=== PATIENT | female | born 1930 | race African-American/Black ===

== ENCOUNTER 2017-07-27 00:59 | Emergency (ER) | payer MEDICARE, OTHER ==
[~2017-07-27] VITALS: Ht 162.6 cm; Wt 65.0 kg
[~2017-07-27 00:59] MED LIST: 1-ME1LIQ PO; ATEN-102 PO; ATOR40TA PO; DETR2TAB PO; FERR300S PO; HUMU70IN SQ; LISI5 PO; MECL25 PO; METF500 PO; PLAV75TA PO; [UNRECOGNIZED DRUG - CODE] PO
[2017-07-27 01:05] VITALS: BP 223/96; PULSE 117; RESP 18; TEMP 99; O2SAT 98
--- NOTE | 2017-07-27 01:15 | PD ---
HPI Chief Complaint: Altered Mental Status Time Seen by Provider: 01:10 Travel History International Travel<30 days: No Contact w/Intl Traveler<30days: No Traveled to known affect area: No History of Present Illness HPI The patient is an 87 year old female who presents to the [facility] emergency department with a history of altered mentation that began earlier today. The patient is reportedly bedbound related to a prior cerebrovascular accident causing left-sided weakness. The patient lives at home with her son. Another son is available at the bedside to assist with history. The patient reportedly was experiencing visual hallucinations. She reports that she saw bright lights. The patient reports having urinary frequency throughout the day today. The patient does have a prior history of urinary tract infections causing confusion. She has not had any new weakness. She denies having any headache or neck pain. The patient reports having joint pains. She reports that she has rheumatoid arthritis. The patient was brought in by ambulance services and had a normal blood sugar prior to arrival. The patient was noted to be tachycardic with a heart rate in the 1 teens. The patient's temperature was 99 on review of systems otherwise, she has not had any known fevers chills, cough or congestion, chest pain, shortness of breath, abdominal pain, vomiting, diarrhea,or new or other neurologic symptoms. 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 The patient has a history of peripheral vascular disease, hyperlipidemia. Arthritis: Yes Cerebrovascular Accident: Yes Diabetes: Yes Patient Takes Glucophage: No Diminished Hearing: Yes Hypertension: Yes Tetanus Vaccination: Unknown Influenza Vaccination: Yes Past Surgical History Narrative Surgical The patient's past surgical history is significant for a second toe left foot amputation secondary to osteomyelitis. Social History Alcohol Use: No Tobacco Use: No Substance Use: No Allergies-Medications (Allergen,Severity, Reaction): Coded Allergies: No Known Allergies (Unverified , 03/11/15) Reported Meds & Prescriptions Reported Meds & Active Scripts Active Keflex (Cephalexin) 500 Mg Capsule 500 Mg PO Q8H 10 Days Glucophage 500 mg (Metformin HCl) 500 Mg Tab 250 Mg PO BID 30 Days Humulin 70/30 (Insulin Isophane & Reg (Human)) 70 /30 Inj 15 Units SQ DAILY IN THE PM 30 Days Humulin 70/30 (Insulin Isophane & Reg (Human)) 70 /30 Inj 20 Units SQ DAILY IN THE AM 30 Days Antivert (Meclizine HCl) 25 Mg Tab 12.5 Mg PO Q8HR PRN 30 Days Prinivil 5 mg (Lisinopril) 5 Mg Tab 5 Mg PO DAILY 30 Days Ferrous Sulfate 300 Mg/5 Ml Syp 300 Mg PO BID 30 Days Reported Atorvastatin 40 mg (Atorvastatin Calcium) 40 Mg Tab 40 Mg PO HS Plavix (Clopidogrel Bisulfate) 75 Mg Tab 75 Mg PO DAILY 1-Methyl 2-Pyrrolidinone (1-Methyl 2-Pyrrolidone (Bulk)) 10 Mg Tab 10 Mg PO DAILY Detrol 2 mg (Tolterodine Tartrate) 2 Mg Tab 2 Mg PO BID Atenolol 50 Mg Tab 50 Mg PO DAILY Lodine (Etodolac) 500 Mg Tab 500 Mg PO BID Give with food Review of Systems Except as stated in HPI: all other systems reviewed are Neg General / Constitutional: No: Fever Eyes: No: Visual changes HENT: No: Headaches Cardiovascular: No: Chest Pain or Discomfort Respiratory: No: Shortness of Breath Gastrointestinal: No: Abdominal Pain Genitourinary: Positive: Frequency, No: Urgency, Dysuria Musculoskeletal: No: Pain Skin: No Rash Neurologic: Positive: Change in Mentation, No: Weakness, Slurred Speech, Sensory Disturbance Psychiatric: No: Depression Endocrine: No: Polydipsia Hematologic/Lymphatic: No: Easy Bruising Physical Exam Narrative General: The patient is a well-developed well-nourished female in no acute distress awake and alert on my arrival to the room, oriented to person, place, time, and situation. Head and Neck exam: Head is normocephalic atraumatic. Eyes: EOMI, pupils are equal round and reactive to light. Nose: Midline septum with pink mucous membranes Mouth: Dentition unremarkable. Moist mucus membranes. Posterior oropharynx is not erythematous. No tonsillar hypertrophy. Uvula midline. Airway patent. Neck: No palpable lymphadenopathy. No nuchal rigidity. No thyromegaly. Cardiovascular: Sinus tachycardia in the low 100 without murmurs, gallops, or rubs. No pulse deficit to the extremities on simultaneous auscultation and palpation of her radial artery. Lungs: Clear to auscultation bilaterally. No wheezes, rhonchi, or rales. On examination of the patient's chest wall mass was noted involving the left breast. The mass is 7.5 cm x 4 cm and is firm and nonmobile to palpation. The patient's family report that she was diagnosed with left breast mass 3 years ago and did not want to have any further evaluation done regarding this. Abdomen: Soft, without tenderness to palpation in all 4 quadrants of the abdomen. No guarding, rebound, or rigidity. Normal bowel sounds are audible. No tenderness on palpation of McBurney's point. Negative Corona sign. Extremities: No clubbing, cyanosis, or edema. 2+ pulses in all 4 extremities. No calf tenderness on palpation peer Back: No spinous process tenderness to palpation. No costovertebral angle tenderness to palpation. Neurologic Exam: No obvious facial asymmetry, weakness of the left upper and left lower extremity are noted on examination which she reports is related to her prior stroke. She has 5/5 strength in the right upper extremity, 4/5 strength in the right lower extremity. She is oriented to person, place, time, and situation currently. Skin Exam: No rash noted. Intact skin that is warm and dry. Data Data Last Documented VS Vital Signs Date Time Temp Pulse Resp B/P (MAP) Pulse Ox O2 Delivery O2 Flow Rate FiO2 07/27/17 02:09 117 15 175/78 (110) 96 Room Air 07/27/17 01:05 99.0 Orders Orders Electrocardiogram (07/27/17 01:12) Complete Blood Count With Diff (07/27/17 01:12) Comprehensive Metabolic Panel (07/27/17 01:12) Creatine Kinase (Cpk) (07/27/17 01:12) Ckmb (Isoenzyme) Profile (07/27/17 01:12) Troponin I (07/27/17 01:12) B-Type Natriuretic Peptide (07/27/17 01:12) Prothrombin Time / Inr (Pt) (07/27/17 01:12) Act Partial Throm Time (Ptt) (07/27/17 01:12) Blood Culture (07/27/17:12) Lipase (07/27/17 01:12) Urinalysis - C+S If Indicated (07/27/17 01:12) Cath For Specimen (07/27/17 01:12) Magnesium (Mg) (07/27/17 01:12) Thyroid Stimulating Hormone (07/27/17 01:12) Chest, Single Ap (07/27/17 01:12) Iv Access Insert/Monitor (07/27/17 01:12) Ecg Monitoring (07/27/17 01:12) Oximetry (07/27/17 01:12) Lactic Acid Sepsis Protocol (07/27/17 01:12) Ammonia (07/27/17 01:12) Ct Brain W/O Iv Contrast(Rout) (07/27/17 01:12) Sodium Chlorid 0.9% 500 Ml Inj (Ns 500 M (07/27/17 02:00) Urine Culture (07/27/17 01:40) Ceftriaxone Inj (Rocephin Inj) (07/27/17 02:15) Ed Discharge Order (07/27/17 03:30) Labs Laboratory Tests Test 07/27/17 01:25 07/27/17 01:40 07/27/17 02:27 White Blood Count 3.5 TH/MM3 Red Blood Count 4.51 MIL/MM3 Hemoglobin 11.5 GM/DL Hematocrit 35.2 % Mean Corpuscular Volume 78.2 FL Mean Corpuscular Hemoglobin 25.6 PG Mean Corpuscular Hemoglobin Concent 32.8 % Red Cell Distribution Width 14.3 % Platelet Count 249 TH/MM3 Mean Platelet Volume 9.4 FL Neutrophils (%) (Auto) 38.6 % Lymphocytes (%) (Auto) 50.6 % Monocytes (%) (Auto) 10.4 % Eosinophils (%) (Auto) 0.1 % Basophils (%) (Auto) 0.3 % Neutrophils # (Auto) 1.4 TH/MM3 Lymphocytes # (Auto) 1.8 TH/MM3 Monocytes # (Auto) 0.4 TH/MM3 Eosinophils # (Auto) 0.0 TH/MM3 Basophils # (Auto) 0.0 TH/MM3 CBC Comment AUTO DIFF Differential Total Cells Counted 100 Neutrophils % (Manual) 49 % Lymphocytes % 42 % Monocytes % 9 % Neutrophils # (Manual) 1.7 TH/MM3 Nucleated Red Blood Cells 1 /100 WBC Differential Comment FINAL DIFF MANUAL Platelet Estimate NORMAL Platelet Morphology Comment NORMAL Red Cell Morphology Comment NORMAL Blood Urea Nitrogen 7 MG/DL Creatinine 0.35 MG/DL Random Glucose 164 MG/DL Total Protein 7.3 GM/DL Albumin 2.4 GM/DL Calcium Level 8.9 MG/DL Magnesium Level 1.8 MG/DL Alkaline Phosphatase 67 U/L Aspartate Amino Transf (AST/SGOT) 17 U/L Alanine Aminotransferase (ALT/SGPT) 12 U/L Total Bilirubin 0.2 MG/DL Sodium Level 144 MEQ/L Potassium Level 3.3 MEQ/L Chloride Level 110 MEQ/L Carbon Dioxide Level 25.8 MEQ/L Anion Gap 8 MEQ/L Estimat Glomerular Filtration Rate 214 ML/MIN Lactic Acid Level 1.5 mmol/L Ammonia 25 MCMOL/L Total Creatine Kinase 58 U/L Troponin I LESS THAN 0.02 NG/ML B-Type Natriuretic Peptide 20 PG/ML Lipase 106 U/L Thyroid Stimulating Hormone 3rd Gen 3.020 uIU/ML Urine Color YELLOW Urine Turbidity HAZY Urine pH 7.5 Urine Specific [place] 1.009 Urine Protein NEG mg/dL Urine Glucose (UA) NEG mg/dL Urine Ketones NEG mg/dL Urine Occult Blood NEG Urine Nitrite NEG Urine Bilirubin NEG Urine Urobilinogen LESS THAN 2.0 MG/DL Urine Leukocyte Esterase LARGE Urine RBC 3 /hpf Urine WBC 48 /hpf Urine Squamous Epithelial Cells 3 /hpf Urine Transitional Epithelial Cells 1 /hpf Urine Amorphous Sediment RARE Urine Bacteria OCC /hpf Urine Mucus FEW /lpf Microscopic Urinalysis Comment CULTURE INDICATED Prothrombin Time 11.6 SEC Prothromb Time International Ratio 1.1 RATIO Activated Partial Thromboplast Time 21.2 SEC [facility] Medical Decision Making Medical Screen Exam Complete: Yes Emergency Medical Condition: Yes Medical Record Reviewed: Yes Interpretation(s) Last Impressions Head CT 07/27/17111 Signed Impressions: Service Date/Time: Thursday, July 27, 2017 01:48 - CONCLUSION: 1. Remote right parietal infarct. 2. No acute intracranial abnormality and no change from previous study. Antwan Ricks MD Chest X-Ray 07/27/17111 Signed Impressions: Service Date/Time: Thursday, July 27, 2017 01:58 - CONCLUSION: Minimal left basilar infiltrate. Antwan Ricks MD Differential Diagnosis Intracranial mass, versus urinary tract infection, versus pneumonia, versus encephalopathy, versus electrolyte derangement Narrative Course During the course of the patient's emergency department visit, the patient's history, examination, and differential diagnosis were reviewed with the patient. The patient was placed on a monitor worker with oximetry and frequent blood pressure monitoring. The patient had IV access obtained and blood work sent for analysis. The patient had an EKG done on arrival that shows a sinus tachycardia heart rate of 118, QRS duration is 88 ms, QTC [address] segment elevation is noted. The patient was noted to be tachycardic prior to arrival by ambulance services. The patient did receive a normal saline 1 L IV fluid bolus. The patient's initial heart rate was in the 130s and now is down into the 1 teens. The patient reports having a dry mouth. The patient was initially provided normal saline at 500 mL bolus. The patient's laboratory studies were reviewed and remarkable for a white count of 3.5, hemoglobin 11.5, platelets 249 with 50.6 lymphocytes, monocytes 10.4. This is compared to her prior laboratory studies the patient has had a white blood cell count of 3.5. CMP is remarkable for a potassium of 3.3, chloride 110 , glucose 164. Creatinine 0.35. The patient's potassium will be supplemented orally, cardiac enzymes within normal limits, albumin 2.4, TSH 3.02, lipase 106 , BNP 20, ammonia level 25, lactic acid 1.5. PT 11.6, PTT 21.2, urinalysis shows 48 WBCs, occasional bacteria, culture indicated. Radiology studies were reviewed and remarkable for a chest x-ray that shows minimal left basilar infiltrate versus atelectasis. The patient has no respiratory symptoms I suspect this is atelectasis. CT scan of the brain shows a remote right parietal infarct, no acute intracranial abnormality and no change from previous study. I had a lengthy discussion with the patient and the patient's family regarding the left breast mass that the patient has noted on exam. The patient reports that she has been aware of it for 3 years. She reports that it is greatly increased in size of the last 2 years. Based on examination it is suspicious for a breast cancer. I did explain this to her. She reports that she is 87 and does not plan on pursuing further evaluation regarding it. The patient will be discharged home on Keflex. The patient is instructed regarding the importance of close follow-up with her primary care physician. The patient is resting comfortably and feels better, is alert and in no distress. The patient's results and examination findings were discussed with the patient. The repeat examination is unremarkable and benign. The history, exam, diagnostic testing, and current condition do not suggest any significant pathology to warrant further testing, continued ED treatment, admission, or surgical evaluation at this point. The vital signs have been stable. The patient does not have uncontrollable pain, intractable vomiting, or other significant symptoms. The patient's condition is stable and appropriate for discharge. The patient will pursue further outpatient evaluation with a primary care physician or other designated or consulting physician as indicated in the discharge instructions. The patient expressed understanding and was agreeable with this plan. Diagnosis Primary Impression: Altered mental status Qualified Codes: R41.0 - Disorientation, unspecified Additional Impressions: UTI (urinary tract infection) Qualified Codes: N39.0 - Urinary tract infection, site not specified Dehydration Referrals: Primary Care Physician 1 day Patient Instructions: Dehydration (ED), General Instructions, Urinary Traction Infection in Older Adults (ED) Med/Other Pt SpecificInfo: Prescription(s) given Scripts Cephalexin (Keflex) 500 Mg Capsule 500 MG PO Q8H for Infection for 10 Days, #30 CAP 0 Refills Prov: Ana Maria Bingham MD 07/27/17 Disposition: DISCHARGE HOME Condition: Stable Ana Maria Bingham MD Jul 27, 2017 01:15
[2017-07-27 01:23] VITALS: O2SAT 99
[2017-07-27 01:50] LABS: AUTOMATED NEUTROPHIL # 1.4 TH/MM3 (1.8-7.7); BASOPHIL % 0.3 % (0.0-2.0); EOSINOPHIL % 0.1 % (0.0-4.0); HEMATOCRIT 35.2 % (35.0-46.0); HEMOGLOBIN 11.5 GM/DL (11.6-15.3); LYMPH % 50.6 % (9.0-44.0); LYMPHOCYTE # 1.8 TH/MM3 (1.0-4.8); MEAN CELL VOLUME 78.2 FL (80.0-100.0); MEAN CORPUSCULAR HEMOGLOBIN 25.6 PG (27.0-34.0); MEAN CORPUSCULAR HGB CONC 32.8 % (32.0-36.0); MEAN PLATELET VOLUME 9.4 FL (7.0-11.0); MONO % 10.4 % (0.0-8.0); MONOCYTE # 0.4 TH/MM3 (0-0.9); NEUT % 38.6 % (16.0-70.0); PLATELET COUNT 249 TH/MM3 (150-450); RED BLOOD COUNT 4.51 MIL/MM3 (4.00-5.30); RED CELL DISTRIBUTION WIDTH 14.3 % (11.6-17.2); WHITE BLOOD COUNT 3.5 TH/MM3 (4.0-11.0)
[2017-07-27 01:53] LABS: AMORPHOUS SEDIMENT, URINE RARE; BACTERIA, URINE OCC /hpf; BILIRUBIN, URINE NEG (NEG); BLOOD, URINE NEG (NEG); GLUCOSE,URINE NEG (NEG); KETONE, URINE NEG (NEG); MUCUS URINE FEW /lpf (OCC); NITRITE,URINE NEG (NEG); PH, URINE 7.5 (5.0-8.5); SQUAMOUS EPITHELIAL CELL URINE 3 /hpf (0-5); TRANSITIONAL EPI CELLS, URINE 1 /hpf; URINE COLOR YELLOW (YELLW/STRAW); URINE LEUKOCYTE ESTERASE LARGE (NEG)
[2017-07-27] MEDS ORDERED: SODIUM CHLORID 0.9% 500 ML INJ 500 ML IV ONE (02:00)
--- NOTE | 2017-07-27 02:01 | RADRPT ---
EXAM DATE/TIME: 07/27/2017 01:48 [facility] COMPARISON: CT BRAIN W/O CONTRAST, August 16, 2015, 10:42. INDICATIONS : Altered mental status. RADIATION DOSE: 56.35 CTDIvol (mGy) MEDICAL HISTORY : Hypertension. Stroke Diabetes mellitus type 2. SURGICAL HISTORY : None. ENCOUNTER: Initial ACUITY: 1 day PAIN SCALE: 0/10 LOCATION: cranial TECHNIQUE: Multiple contiguous axial images were obtained of the head. Using automated exposure control and adj ustment of the mA and/or kV according to patient size, radiation dose was kept as low as reasonably a chievable to obtain optimal diagnostic quality images. DICOM format image data is available electro nically for review and comparison. FINDINGS: CEREBRUM: Old right parietal infarct. Midline cystic lesion is unchanged. The ventricles are normal for age. N o evidence of midline shift, mass lesion, hemorrhage or acute infarction. No extra-axial fluid colle ctions are seen. POSTERIOR FOSSA: The cerebellum and brainstem are intact. The 4th ventricle is midline. The cerebellopontine angle i s unremarkable. EXTRACRANIAL: The visualized portion of the orbits is intact. SKULL: The calvaria is intact. No evidence of skull fracture. CONCLUSION: 1. Remote right parietal infarct. 2. No acute intracranial abnormality and no change from previous study. Antwan Ricks MD on July 27, 2017 at 1:58 Board Certified Radiologist. This report was verified electronically.
[2017-07-27 02:09] VITALS: BP 175/78; PULSE 117; RESP 15; O2SAT 96
[2017-07-27 02:14] LABS: ALKALINE PHOSPHATASE 67 U/L (45-117); TOTAL BILIRUBIN ADULT 0.2 MG/DL (0.2-1.0); TOTAL PROTEIN 7.3 GM/DL (6.4-8.2); TROPONIN I LESS THAN 0.02 NG/ML (0.02-0.05)
--- NOTE | 2017-07-27 02:14 | RADRPT ---
EXAM DATE/TIME: 07/27/2017 01:58 [facility] COMPARISON: CHEST SINGLE AP, August 16, 2015, 10:45. INDICATIONS : Altered mental status. MEDICAL HISTORY : Rheumatoid arthritis. Hypertension. Diabetes SURGICAL HISTORY : None. ENCOUNTER: Initial ACUITY: 1 day PAIN SCORE: 0/10 LOCATION: Bilateral chest FINDINGS: A single view of the chest demonstrates minimal left basilar infiltrate. Heart normal in size. Right lung is relatively clear. Nodular density projects over the right lower lobe likely nipple shadow. Th e cardiomediastinal contours are unremarkable. Osseous structures are intact. CONCLUSION: Minimal left basilar infiltrate. Antwan Ricks MD on July 27, 2017 at 2:11 Board Certified Radiologist. This report was verified electronically.
[2017-07-27] MEDS ORDERED: cefTRIAXone INJ 1,000 MG in SODIUM CHLORIDE 0.9% INJ 100 ML IV ONE (02:15)
[2017-07-27 02:17] LABS: ALBUMIN 2.4 GM/DL (3.4-5.0); ALT (GPT) 12 U/L (10-53); AST (GOT) 17 U/L (15-37); BICARBONATE 25.8 MEQ/L (21.0-32.0); BLOOD UREA NITROGEN 7 MG/DL (7-18); CALCIUM 8.9 MG/DL (8.5-10.1); CHLORIDE 110 MEQ/L (98-107); CREATININE 0.35 MG/DL (0.50-1.00); GLOMERULAR FILTRATION RATE 214 ML/MIN (>89); GLUCOSE,RANDOM 164 MG/DL (74-106); MAGNESIUM 1.8 MG/DL (1.5-2.5); SODIUM (NA) 144 MEQ/L (136-145)
[2017-07-27 02:59] LABS: CORRECTED NUCLEATED RBC 1 /100 WBC (0-0); LYMPHOCYTES 42 % (9-44); MONOCYTES 9 % (0-8); NEUTROPHIL # MANUAL DIFF 1.7 TH/MM3 (1.8-7.7); NUCLEATED RED BLOOD CELL 1 (0-0); POLYS (SEG NEUTROPHILS) 49 % (16-70)
[2017-07-27 03:13] LABS: INTERNATIONAL NORMALIZED RATIO 1.1 RATIO; PROTHROMBIN TIME - PATIENT 11.6 SEC (9.8-11.6)
[2017-07-27] MEDS ORDERED: CEPH-460 PO (03:31)
[2017-07-27] MEDS ORDERED: POTASSIUM CHLORIDE 20 MEQ CONTROLLED RELEASE TAB PO ONE (03:45)
[2017-07-27 05:29] VITALS: BP 137/65; PULSE 95; RESP 14; O2SAT 97
--- NOTE | 2017-07-27 22:34 | EKG ---
Date Performed: 07/27/2017 Time Performed: 01:35:24 PTAGE: 87 years EKG: SINUS TACHYCARDIA NONSPECIFIC ST & T-WAVE ABNORMALITY ABNORMAL RHYTHM ECG PREVIOUS TRACING : 08/16/2015 09.54 Compared to previous tracing, rate faster DOCTOR: Herve Morillo Interpretating Date/Time 07/27/2017 22:33:01
== END 2017-07-27 10:24 | disposition home or self-care (01) ==
LOC: NEPC 00:59 → NEDAMB 10:24
DX: R41.82 Altered mental status, unspecified (principal); N39.0 Urinary tract infection, site not specified; E86.0 Dehydration; R00.0 Tachycardia, unspecified; E78.5 Hyperlipidemia, unspecified; I10 Essential (primary) hypertension; E11.9 Type 2 diabetes mellitus without complications; I69.354 Hemiplegia and hemiparesis following cerebral infarction affecting left non-dominant side; Z79.02 Long term (current) use of antithrombotics/antiplatelets; Z79.4 Long term (current) use of insulin
CPT/HCPCS: 70450; 71045; 80053; 81001; 82140; 82550; 83605; 83690; 83735; 83880; 84443; 84484; 85007; 85027; 85610; 85730; 87040; 87086; 93005; 96365; 96366; 99285; J0696; J7040